=== PATIENT | male | born 1960 | race Caucasian/White ===

== ENCOUNTER 2021-03-15 09:59 | Emergency (ER) | payer BC ==
[2021-03-15] MEDS ORDERED: Bupivacaine 0.5% 10 ML SDV INJECT ONE (10:36)
--- NOTE | 2021-03-15 10:50 | EDM.PDOC ---
ED HPI GENERAL MEDICAL PROBLEM - General Chief Complaint: Laceration Stated Complaint: CUT ON FINGER ON RIGHT HAND Time Seen by Provider: 03/15/21 10:30 Source of Information: Reports: Patient History Limitations: Reports: No Limitations - History of Present Illness INITIAL COMMENTS - FREE TEXT/NARRATIVE: 60-year-old male with a crush injury to the distal aspect of the ring finger on the right hand. He was working on his camper, when his finger got pinched in the metal framework of an awning. He has an isolated injury to the ring finger. Onset: Sudden Duration: Hour(s): (1 hour ago) Location: Reports: Upper Extremity, Right Associated Symptoms: Reports: No Other Symptoms Right Finger-Ring Pain Score (Numeric/FACES): 8 - Related Data Allergies Allergy/AdvReac Type Severity Reaction Status Date / Time No Known Allergies Allergy Verified 03/15/21 10:13 Home Meds: Home Meds lisinopriL [Lisinopril] 5 mg PO DAILY 03/15/21 [History] Past Medical History HEENT History: Reports: Hard of Hearing Cardiovascular History: Reports: High Cholesterol, Hypertension Social & Family History - Tobacco Use Tobacco Use Status *Q: Never Tobacco User - Caffeine Use Caffeine Use: Reports: Coffee - Recreational Drug Use Recreational Drug Use: No ED ROS GENERAL - Review of Systems Review Of Systems: See Below Constitutional: Denies: Fever, Chills Respiratory: Denies: Shortness of Breath Cardiovascular: Denies: Chest Pain GI/Abdominal: Denies: Nausea, Vomiting Neurological: Reports: Paresthesia (Distal flap of the injury is numb, but the injury itself is very painful. Bleeding is controlled.) Psychiatric: Reports: Anxiety ED EXAM, SKIN/RASH Exam: See Below Exam Limited By: No Limitations General Appearance: Alert, Anxious Head: Atraumatic Respiratory/Chest: No Respiratory Distress, Lungs Clear Extremities: Other (Exam is otherwise limited to the right hand. The ring finger has an obvious crush injury to the distal finger, with displacement of the pulp. There is a total laceration of 3 cm extending from side to side through the nailbed. There is capillary refill to the distal segment. It is numb.) Neurological: Alert, Oriented Psychiatric: Anxious Course - Vital Signs Last Recorded V/S: Last Vital Signs Temp 94.9 F L 03/15/21 10:18 Pulse 69 03/15/21 10:18 Resp 18 03/15/21 10:18 BP 147/81 H 03/15/21 10:18 Pulse Ox 96 03/15/21 10:18 - Orders/Labs/Meds Orders: Active Orders 24 hr Category Date Time Status Vaccines to be Administered [RC] PER UNIT ROUTINE Care 03/15/21 11:40 Active Fingers Fourth Digit Rt F8 [CR] Stat Exams 03/15/21 10:47 Taken Meds: Medications Discontinued Medications Generic Name Dose Route Start Last Admin Trade Name Gabriel PRN Reason Stop Dose Admin Bacitracin 1 dose 03/15/21 11:40 03/15/21 11:59 Bacitracin Oint 1 Gm U/D Packet TOP 03/15/21 11:41 1 dose ONETIME ONE Administration Bupivacaine HCl 10 ml 03/15/21 10:36 03/15/21 10:47 Bupivacaine 0.5% 10 Ml Sdv INJECT 03/15/21 10:37 10 ml ONETIME ONE Administration Diphtheria/Tetanus/Acell Pertussis 0.5 ml 03/15/21 11:40 03/15/21 11:59 Diphtheria,Pertussis(Acell),Tetanus Vaccine 0.5 Ml Syringe IM 03/15/21 11:41 0.5 ml .ONCE ONE Administration - Re-Assessments/Exams Free Text/Narrative Re-Assessment/Exam: 03/15/21 11:57 An x-ray of the finger was taken after a Marcaine digital block. This shows a comminuted fracture of the tuft of the distal phalanx. With good anesthesia, the wound was cleansed thoroughly with saline removing clots and any foreign bodies . The nail was then removed with an iris scissors. The nailbed was reapproximated and repaired with three 6-0 Vicryl sutures. The lacerations extending on the side of the nail were then closed on each side with 3 sutures of 4-0 Ethilon. The nail was then replaced and sutured in with one 4-0 Ethilon suture. Patient will be placed on 1 week of cephalexin 500 mg 3 times a day, given 10 Percocet for extra pain control, and bacitracin and dressings were applied to the finger with a tube gauze. He is going to leave this in place until tomorrow, remove the gauze and wash the wound gently and then keep covered with topical antibiotic and Band-Aids using an aluminum foam splint for protection. I encouraged him to recheck the injury or Wednesday next week with his primary provider. Departure - Departure Time of Disposition: 12:10 Disposition: Home, Self-Care 01 Clinical Impression: Crushing injury of finger of right hand Laceration of finger nail bed Qualifiers: Encounter type: initial encounter Qualified Code(s): S61.319A - Laceration without foreign body of unspecified finger with damage to nail, initial encounter - Discharge Information Instructions: Laceration Care, Adult Referrals: PCP,None [Primary Care Provider] - Forms: ED Department Discharge Care Plan Goals: Keep wound covered and clean while healing, keep protected with splint and recheck in 5-6 days at the clinic. Take antibiotic 3 times a day as prescribed, a regular dose of ibuprofen or naproxen will help and add stronger pain medication if needed. Recheck sooner if concerns of infection or not healing satisfactorily. Sepsis Event Note (ED) - Evaluation Sepsis Screening Result: No Definite Risk - Focused Exam Vital Signs: Vital Signs Temp Pulse Resp BP Pulse Ox 03/15/21 10:18 94.9 F L 69 18 147/81 H 96 - My Orders Last 24 Hours: My Active Orders 03/15/21 11:40 Vaccines to be Administered [RC] PER UNIT ROUTINE - Assessment/Plan Last 24 Hours: My Active Orders 03/15/21 11:40 Vaccines to be Administered [RC] PER UNIT ROUTINE
--- NOTE | 2021-03-15 10:54 | EDM.PDOC ---
<Shira Tobin - Last Filed: 03/16/21 17:42> ED HPI GENERAL MEDICAL PROBLEM - General Chief Complaint: Laceration Stated Complaint: CUT ON FINGER ON RIGHT HAND Time Seen by Provider: 03/15/21 10:35 Source of Information: Reports: Patient History Limitations: Reports: No Limitations - History of Present Illness INITIAL COMMENTS - FREE TEXT/NARRATIVE: 60 year old male arrives with complaint of finger laceration. Patient reports that he was folding up the canopy on his camper when his right fourth finger got caught between two of the braces. Laceration to right 4th finger, bleeding and finger nail involvement. Patient is able to move fingers, no numbness or tingling, and reports no other injuries from incident today. Onset: Today Onset Date: 03/15/21 Duration: Minutes: Location: Reports: Other (right 4th finger) Quality: Reports: Throbbing Severity: Moderate Improves with: Reports: None Worsens with: Reports: Movement Associated Symptoms: Reports: No Other Symptoms Right Finger-Ring Pain Score (Numeric/FACES): 8 - Related Data Allergies Allergy/AdvReac Type Severity Reaction Status Date / Time No Known Allergies Allergy Verified 03/15/21 10:13 Home Meds: Home Meds lisinopriL [Lisinopril] 5 mg PO DAILY 03/15/21 [History] Past Medical History HEENT History: Reports: Hard of Hearing Cardiovascular History: Reports: High Cholesterol, Hypertension Social & Family History - Tobacco Use Tobacco Use Status *Q: Never Tobacco User - Caffeine Use Caffeine Use: Reports: Coffee - Recreational Drug Use Recreational Drug Use: No ED ROS GENERAL - Review of Systems Review Of Systems: See Below Constitutional: Reports: No Symptoms. Denies: Fever, Weakness HEENT: Reports: No Symptoms Respiratory: Reports: No Symptoms. Denies: Shortness of Breath, Wheezing Cardiovascular: Reports: No Symptoms. Denies: Chest Pain, Edema Endocrine: Reports: No Symptoms GI/Abdominal: Reports: No Symptoms. Denies: Abdominal Pain : Reports: No Symptoms Musculoskeletal: Reports: No Symptoms Skin: Reports: Other (laceration to right fourth finger involving finger nail.) Neurological: Reports: No Symptoms. Denies: Headache, Numbness Psychiatric: Reports: No Symptoms Hematologic/Lymphatic: Reports: No Symptoms Immunologic: Reports: No Symptoms ED EXAM, SKIN/RASH Exam: See Below Text/Narrative:: right fourth finger has laceration involving finger nail at the distal tip of finger. bleeding controlled at this time, pain with any movement or palpation to finger. No other associated symptoms or injuries noted. Respirations are regular and non labored. skin is warm and dry. Patient is alert and oriented. Exam Limited By: No Limitations General Appearance: Alert, WD/WN Head: Atraumatic Neck: Normal Inspection, Non-Tender Respiratory/Chest: No Respiratory Distress Cardiovascular: Normal Peripheral Pulses GI/Abdominal: Non-Tender, No Distention (Male) Exam: Deferred Rectal (Males) Exam: Deferred Back Exam: Full Range of Motion Extremities: Normal Inspection Neurological: Alert, Oriented, Normal Cognition Psychiatric: Normal Affect Skin: Warm, Dry, Wound/Incision (right fourth finger wound, bleeding controlled at this time. ) Location, Skin: Other (right fourth finger. ) Lymphatic: No Adenopathy Course - Vital Signs Text/Narrative:: Nerve block to distal fourth finger, xray ordered, plan for nail removal and sutures. Patient agrees with plan of care. Departure - Departure Disposition: Home, Self-Care 01 Clinical Impression: Crushing injury of finger of right hand Laceration of finger nail bed Qualifiers: Encounter type: initial encounter Qualified Code(s): S61.319A - Laceration without foreign body of unspecified finger with damage to nail, initial encounter - Discharge Information Instructions: Laceration Care, Adult Referrals: PCP,None [Primary Care Provider] - Forms: ED Department Discharge Care Plan Goals: Keep wound covered and clean while healing, keep protected with splint and recheck in 5-6 days at the clinic. Take antibiotic 3 times a day as prescribed, a regular dose of ibuprofen or naproxen will help and add stronger pain medication if needed. Recheck sooner if concerns of infection or not healing satisfactorily. Sepsis Event Note (ED) - Evaluation Sepsis Screening Result: No Definite Risk <Tan Brock - Last Filed: 03/16/21 17:45> Course - Vital Signs Last Recorded V/S: Last Vital Signs Temp 94.9 F L 03/15/21 10:18 Pulse 69 03/15/21 10:18 Resp 18 03/15/21 10:18 BP 147/81 H 03/15/21 10:18 Pulse Ox 96 03/15/21 10:18 - Orders/Labs/Meds Meds: Medications Discontinued Medications Generic Name Dose Route Start Last Admin Trade Name Gabriel PRN Reason Stop Dose Admin Bacitracin 1 dose 03/15/21 11:40 03/15/21 11:59 Bacitracin Oint 1 Gm U/D Packet TOP 03/15/21 11:41 1 dose ONETIME ONE Administration Bupivacaine HCl 10 ml 03/15/21 10:36 03/15/21 10:47 Bupivacaine 0.5% 10 Ml Sdv INJECT 03/15/21 10:37 10 ml ONETIME ONE Administration Diphtheria/Tetanus/Acell Pertussis 0.5 ml 03/15/21 11:40 03/15/21 11:59 Diphtheria,Pertussis(Acell),Tetanus Vaccine 0.5 Ml Syringe IM 03/15/21 11:41 0.5 ml .ONCE ONE Administration Departure - Departure Time of Disposition: 12:48 Attestation - Student - Attestation Statement Attestation Statement: I personally performed or re-performed the physical examination and medical decision making. I have verified all student documentation or findings, including history, physical exam and/or medical decision making.
[2021-03-15] MEDS ORDERED: Bacitracin Oint 1 GM U/D Packet TOP ONE (11:40)
[2021-03-15] MEDS ORDERED: Diphtheria,Pertussis(Acell),Tetanus Vaccine 0.5 ML Syringe IM ONE (11:40)
--- NOTE | 2021-03-17 09:41 | CR ---
Fingers Fourth Digit Rt F8 CLINICAL HISTORY: Injury FINDINGS: There is a comminuted displaced tuft fracture of the fourth distal phalanx. IMPRESSION: Fracture fourth distal phalanx
== END 2021-03-15 12:48 | disposition home or self-care (01) ==
LOC: JP.ED 09:59
DX: S67.194A Crushing injury of right ring finger, initial encounter (principal); S61.314A Laceration without foreign body of right ring finger with damage to nail, initial encounter; I10 Essential (primary) hypertension; Z79.899 Other long term (current) drug therapy; Z23 Encounter for immunization; W23.0XXA Caught, crushed, jammed, or pinched between moving objects, initial encounter
CPT/HCPCS: 11760; 12002; 73140; 90471; 90715; 99283; J3490